=== PATIENT | male | born 1980 | race Caucasian/White ===

== ENCOUNTER 2017-03-01 01:35 | Emergency (ER) | payer OTHER ==
[~2017-03-01 01:35] MED LIST: CELEXA PO; IBUPROFEN800 MG PO; MEDROL PO; NABUMETONE PO; NO MEDICATIONS; PRILOSEC20 M1 PO; ULTRAM PO; VOLTAREN50 MG PO
== END 2017-03-01 02:00 | disposition home or self-care (01) ==
LOC: SED 01:35
DX: L25.9 Unspecified contact dermatitis, unspecified cause (principal); E66.01 Morbid (severe) obesity due to excess calories; Z87.891 Personal history of nicotine dependence
CPT/HCPCS: 99282